=== PATIENT | female | born 1950 | race Caucasian/White ===

== ENCOUNTER 2018-08-12 09:48 | Observation (INO) ==
[2018-08-12] MEDS ORDERED: Metoprolol Tartrate 25 MG Tablet PO ONE (10:30)
[2018-08-12] MEDS ORDERED: Chlorhexidine Gluconate 2% 1 Pack (2 Cloths) TOPICAL ONE (10:30)
[2018-08-12] MEDS ORDERED: Sodium Chlor 0.9% Inj 500 ML IV.CONT ONE ×2 (10:30→14:44)
[2018-08-12] MEDS ORDERED: Heparin/NS PF Inj 0 ML ONE (14:03)
[2018-08-12] MEDS ORDERED: Bupivacaine/Epinephrine 0.5% Inj 50 ML Vial ONE (14:03)
[2018-08-12] MEDS ORDERED: Heparin 10,000 UNITS/10 ML Vial (for IV use) ONE ×2 (14:03→14:20)
[2018-08-12] MEDS ORDERED: Heparin - SQ 10,000 UNITS/ML Vial ONE ×2 (14:20→14:57)
[2018-08-12] MEDS ORDERED: Protamine Sulfate Inj 50 MG/5 ML Vial ONE ×2 (14:20→14:26)
[2018-08-12] MEDS ORDERED: Lidocaine PF 1% Inj 5 ML Syringe OTHER ONE (14:44)
--- NOTE | 2018-08-12 15:19 | ECG ---
Date Performed: 08/12/2018 Time Performed: 10:22:43 PTAGE: 68 years EKG: Sinus rhythm NORMAL ECG PREVIOUS TRACING : 01/17/2015 18.06 Since the previous tracing, no significant change noted DOCTOR: Maoc Dalton Interpretating Date/Time 08/12/2018 15:18:05
[2018-08-12] MEDS: Protamine Sulfate Inj 50 MG/5 ML Vial ONE ×2 (15:27→15:47)
[2018-08-12] MEDS ORDERED: hydrALAZINE HCl Inj 20 MG/ML Vial IV.PUSH PRN (16:04)
--- NOTE | 2018-08-12 16:13 | P.BOP ---
- Preoperative Diagnosis (1) Ischemia of extremity - Postoperative Diagnosis (1) Ischemia of extremity Date of procedure: 08/12/18 Procedure: AF Arteriogram with Rt BINA PTBA/Stent Anesthesia: GETA, local Surgeon: Deng Parker MD Estimated blood loss (mL): 50 Pathology: none sent Condition: stable Disposition: PACU
[2018-08-12] MEDS ORDERED: fentaNYL Citrate Inj 100 MCG/2 ML Ampul ONE (16:24)
[2018-08-12] MEDS ORDERED: Iohexol 300 MG/ML 50 ML Vial (for Rad Diag) IVCONTRAST ONE (16:33)
[2018-08-12] MEDS ORDERED: *Meperidine Inj 25 MG/ML Vial PERIprocedural Use ONLY ONE (16:43)
[2018-08-12] MEDS ORDERED: KCL 20 mEq/D5W/NaCl 0.45% Inj 1,000 ML ONE (16:47)
[2018-08-12] MEDS: KCL 20 mEq/D5W/NaCl 0.45% Inj 1,000 ML IV.CONT SCH (17:12)
--- NOTE | 2018-08-12 18:21 | MP ---
cc: Deng Parker MD DATE OF OPERATION: 08/12/2018 PREOPERATIVE DIAGNOSIS: Disabling right lower extremity ischemia. POSTOPERATIVE DIAGNOSIS: Disabling right lower extremity ischemia. OPERATIVE PROCEDURE: Right common iliac percutaneous balloon angioplasty with stent placement. SUBJECTIVE: Deng Parker MD ANESTHESIA: General endotracheal/local. DESCRIPTION OF PROCEDURE: With the patient in the supine position, general endotracheal anesthesia was induced, the lower abdomen, both groins and thighs prepped with Betadine and draped in a sterile fashion. Appropriate IV antibiotic prophylaxis was administered. Following a protocol timeout, the skin and subcutaneous tissues surrounding the proposed right common femoral access site were preemptively infiltrated with 0.5% Marcaine with epinephrine. Utilizing ultrasound guidance, an 18 gauge needle was inserted into the right mid common femoral lumen and a J wire advanced under fluoroscopic guidance to the iliac artery. A 6 [place] hemostatic sheath was deployed over the J wire. An Advantage guidewire and Omni catheter combination was negotiated into the juxtarenal aorta. 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 It appeared less than 4 cm in overall diameter intraluminal measurement. 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 More distally, the common iliac exhibited a focal fairly high-grade stenosis approximately 1 cm proximal to its bifurcation. This area of stenosis significantly slowed contrast flow distally. Beyond this area, there was poststenotic dilatation of the more distal common and proximal external iliac artery. The runoff below the groin looked entirely normal. On the left side, no significant stenotic disease was apparent other than a minor, less than 20% to 30% eccentric focal plaque within the proximal SFA. Specifically, no stenotic disease on the left was apparent that would explain left lower extremity symptoms. The patient was systemically heparinized with 5000 units. The right common iliac focal stenosis was predilated with a 7 x 30 mm balloon inflated to 6 atmospheres, 2 separate inflations of 2 minutes each, followed by deployment of an 8 x 27 mm balloon expandable stent. Completion angiogram revealed no residual stenotic disease. The 6 [place] sheath was secured with a skin suture of 4-0 nylon and a sterile dressing applied. At the completion of the procedure, the right posterior tibial pulse was easily palpable with robust biphasic flow. The patient returned to recovery in stable condition, having tolerated the procedure well. MD AMY Reynolds/evan , 04:51 PM , 05:01 PM
[2018-08-12] MEDS: Propranolol 40 MG Tablet PO SCH (20:39)
[2018-08-13] MEDS: KCL 20 mEq/D5W/NaCl 0.45% Inj 1,000 ML IV.CONT SCH (05:23)
[2018-08-13] MEDS ORDERED: Aspirin 325 MG Tablet PO SCH (09:00)
[2018-08-13] MEDS ORDERED: TIOTROPIUM BROMIDE INH SCH (09:00)
[2018-08-13] MEDS ORDERED: amLODIPine 5 MG Tablet PO SCH (09:00)
[2018-08-13] MEDS: Propranolol 40 MG Tablet PO SCH (09:54)
--- NOTE | 2018-08-13 09:58 | P.PN ---
Subjective Interval history: Stable recovery. No pain,cardio-resp complaints. Ambulating and voiding ok Rt fem access site uncomplicated. Rt PT pulse robust. Physical Exam Vital signs: Vital Signs 08/12/18 10:50 08/12/18 16:16 08/12/18 16:30 Temperature 96.9 F L 98 F Pulse Rate 63 82 87 Respiratory Rate 20 16 16 Blood Pressure 153/77 H 153/97 H 147/66 H Pulse Oximetry 95 94 L 94 L 08/12/18 16:45 08/12/18 17:00 08/12/18 17:15 Temperature 97.6 F Pulse Rate 84 65 66 Respiratory Rate 16 16 16 Blood Pressure 143/65 H 134/62 140/63 Pulse Oximetry 94 L 94 L 94 L 08/12/18 17:58 08/12/18 20:00 08/12/18 22:11 Temperature 98.4 F 97.9 F 97.5 F L Pulse Rate 93 H 65 68 Respiratory Rate 18 16 16 Blood Pressure 143/66 H 134/60 127/59 L Pulse Oximetry 93 L 94 L 93 L 08/12/18 22:16 08/12/18 23:37 08/13/18 00:00 Temperature 97.4 F L Pulse Rate 61 64 Respiratory Rate 16 Blood Pressure 140/60 Pulse Oximetry 95 92 L 08/13/18 01:00 08/13/18 02:00 08/13/18 03:00 Temperature Pulse Rate 58 L 54 L 55 L Respiratory Rate Blood Pressure Pulse Oximetry 08/13/18 04:00 08/13/18 05:00 08/13/18 06:00 Temperature 97.5 F L Pulse Rate 56 L 56 L 56 L Respiratory Rate 16 Blood Pressure 145/64 H Pulse Oximetry 92 L 08/13/18 07:00 Temperature Pulse Rate 57 L Respiratory Rate Blood Pressure Pulse Oximetry Intake & Output 08/12/18 08/13/18 08/13/18 18:59 06:59 18:59 Intake Total 1640 / 1640 1480 / 1480 Output Total 30 / 30 600 / 600 Balance 1610 / 1610 880 / 880 Weight 71.6 kg 71 kg Intake: IV 100 / 100 1000 / 1000 D5W/1/2NS + KCL 20 mEq Inj 1, 1000 / 1000 000 ML @ 85 mls/hr IV.CONT . [id number] [facility] Rx#:[id number] Ancef Inj 1,000 MG In NS Inj 100 / 100 100 ML @ 200 mls/hr IV.SIG [employer]IN[employer] [facility] Rx#:[id number] Oral 240 / 240 480 / 480 Anesthesia Amount 1300 / 1300 Output: Urine 600 / 600 Estimated Blood Loss 30 / 30 Other: # Voids 1 # Incontinent Voids 1 Weight On Admission 71.6 kg Results - Labs Laboratory Results - last 24 hr 08/12/18 11:00 Blood Type O Negative Blood Type Recheck Required Antibody Screen Negative
[2018-08-13 10:35] VITALS: BP 144/72; PULSE 89; RESP 17; TEMP 98.4; O2SAT 90
== END 2018-08-13 11:09 | disposition home or self-care (01) ==
LOC: HSDI 09:48 → HSDC 09:48 → HCPC 17:24
PROVIDERS: ADMIT Surgery Vascular Surgery; ATTEND Surgery Vascular Surgery